=== PATIENT | female | born 1990 | race American Indian/Alaskan Native ===

== ENCOUNTER 2022-12-29 19:12 | Emergency (ER) | payer SELFPAY ==
[~2022-12-29] VITALS: Ht 162.6 cm; Wt 102.1 kg
[2022-12-29 19:21] VITALS: BP_SYST 124; PULSE 65; RESP 20; TEMP 97; O2SAT 96
[2022-12-29 20:20] VITALS: TEMP 98.1
[2022-12-29 20:43] LABS: INFLUENZA TYPE A Negative (NEGATIVE); INFLUENZA TYPE B NEGATIVE (NEGATIVE)
[2022-12-29] MEDS ORDERED: PRED20TA PO (20:52)
[2022-12-29] MEDS ORDERED: ALBMDI INH (20:52)
[2022-12-29] MEDS ORDERED: METR45CR9 TP (20:53)
[2022-12-29 21:13] VITALS: BP_SYST 114; PULSE 75; RESP 17; O2SAT 94
== END 2022-12-29 21:13 | disposition home or self-care (01) ==
LOC: SED 19:12
DX: J40 Bronchitis, not specified as acute or chronic (principal); R05.9 Cough, unspecified; R09.81 Nasal congestion; J02.9 Acute pharyngitis, unspecified; Z79.899 Other long term (current) drug therapy; Z20.822 Contact with and (suspected) exposure to COVID-19
CPT/HCPCS: 36415; 71045; 81025; 99284